=== PATIENT | male | born 1980 | race Two or more races ===

== ENCOUNTER 2021-04-25 03:01 | Emergency (ER) | payer OTHER ==
[~2021-04-25] VITALS: Ht 162.6 cm; Wt 72.3 kg
--- NOTE | 2021-04-25 04:20 | NUR ---
Pt to xray
[2021-04-25] MEDS ORDERED: LIDODERM 5% PATCH TD ONE ×2 (04:44→05:00)
[2021-04-25] MEDS ORDERED: METHOCARBAMOL 500 MG TABLET ONE (04:45)
[2021-04-25] MEDS ORDERED: ACETAMINOPHEN 500 MG TABLET ONE (04:46)
[2021-04-25] MEDS: ACETAMINOPHEN 325 MG TABLET PO ONE ×2 (04:52→04:58)
[2021-04-25] MEDS ORDERED: METHOCARBAMOL 750 MG TABLET PO ONE (05:00)
[2021-04-25 06:51] LABS: BASOPHILS % (AUTO) 1 % (0-1); EOSINOPHILS % (AUTO) 2 % (1-7); LYMPHOCYTES % (AUTO) 16 % (22-44); MEAN CORPUSCULAR HEMOGLOBIN 30.1 pg (27.5-34.5); MEAN PLATELET VOLUME 6.6 fL (7.4-10.4); MONOCYTES % (AUTO) 5 % (2-9); NEUTROPHILS % (AUTO) 78 % (42-75); PLATELET COUNT 267 x10^3/uL (130-400); RED BLOOD COUNT 5.33 x10^6/uL (4.38-5.82); RED CELL DISTRIBUTION WIDTH 13.2 % (9.4-14.8)
[2021-04-25 06:53] LABS: MD NO
--- NOTE | 2021-04-25 06:53 | NUR ---
Report to Mela HINES
--- NOTE | 2021-04-25 06:54 | NUR ---
ASSUMING CARE OF PT FROM NOC FLORA STERLING AFTER BEDSIDE REPORT. PT RESTING IN BED ATTACHED TO MONITOR. VSS. GRAJEDA.
[2021-04-25 06:55] LABS: ALBUMIN 4.7 g/dL (3.4-5.0); ANION GAP 8 mmol/L (5-15); CALCIUM 8.8 mg/dL (8.5-10.1); CHLORIDE 109 mmol/L (98-107); CREATININE 0.82 mg/dL (0.7-1.3)
--- NOTE | 2021-04-25 07:26 | NUR ---
PT TO CT.
[2021-04-25] MEDS ORDERED: OMNIPAQUE 350 MG/ML, 75ML BOTTLE ONE (07:44)
[2021-04-25 08:34] VITALS: BP 118/73
--- NOTE | 2021-04-25 08:35 | NUR ---
Patient given discharge instructions and they have confirmed that they understand the instructions. Patient ambulatory with steady gait.
== END 2021-04-25 08:36 | disposition home or self-care (01) ==
LOC: ED 07:47
DX: J90 Pleural effusion, not elsewhere classified (principal); M54.6 Pain in thoracic spine; R07.9 Chest pain, unspecified
CPT/HCPCS: 36415; 71046; 71260; 80048; 82040; 85025; 99285; Q9967